=== PATIENT | male | born 1950 | race Caucasian/White ===

== ENCOUNTER → 2023-05-08 | Day surgery (SDC) | payer MEDICARE, MEDICAID ==
[2023-05-03 11:41] LABS: Hemoglobin 16.8 g/dL (13.5-17.5); Red Blood Cells 4.74 10^6/uL (4.5-5.90)
[2023-05-03 11:43] LABS: Hematocrit 49.5 % (41.0-53.0); Mean Corpuscular Hemoglobin 35.4 pg (28.0-32.0); Mean Corpuscular Hgb Conc. 33.9 g/dL (32.0-36.0); Mean Corpuscular Volume 104.5 fL (80.0-100.0); Red Cell Distribution Width 13.8 % (11.8-14.3); White Blood Cell 5.9 10^3/uL (4.4-10.8)
[2023-05-03 11:46] LABS: Band Neutrophils % (manual) 0; Basophils % (manual) 0 (0.0-2.0); Blast Cells 0; Eosinophils % (manual) 0 (0-7); Metamyelocytes % 0; Myelocytes % 0; Promyelocytes % 0; Reactive Lymphocytes 0
[2023-05-03 11:56] LABS: INR 1.02 (0.9-1.15); Partial Thromboplastin Time 30.6 SEC (24.5-34.5)
[2023-05-03 12:03] LABS: Urine Bacteria NONE SEEN /hpf (None Seen); Urine Blood Negative /uL (Negative); Urine Specific Gravity 1.022 (1.001-1.035); Urine WBC <1 /hpf (0 - 3)
[2023-05-03 12:11] LABS: Albumin 3.4 g/dL (3.4-5.0); Calcium 9.2 mg/dL (8.5-10.1); Potassium 5.2 mmol/L (3.5-5.1)
[2023-05-03 12:14] LABS: BUN/Creatinine Ratio 13.4 (10.0-20.0); Bilirubin, Total 0.5 mg/dL (0.2-1.0); Total Protein 7.5 g/dL (6.4-8.2)
[2023-05-03 12:32] LABS: Lymphocytes % (manual) 42 (10.0-50.0); Monocytes % (manual) 18 (0-12)
[~2023-05-08] VITALS: Ht 177.8 cm; Wt 124.7 kg
[~2023-05-08] MED LIST: ATEN-60 PO; BUPIVACAINE HCL 50 ML ONE; DexAMETHasone SOD PHOS 10MG/1ML VIAL INJ ONE; GLYCOPYRROLATE 0.2 MG/ML 1ML VIAL ONE; KETOROLAC TROMETH 30 MG/ML 1ML VIAL ONE; LIDOCAINE 2% (LOCAL ANESTH.) PF 5ml SDV ONE; ONDANSETRON HCL 4 MG/2 ML VIAL ONE; PROPOFOL 10 MG/ML 20 ML IV ONE; ceFAZolin 1GM VL ONE; ceFAZolin 1GM/50ML 100 ML IV ONE
[2023-05-08 08:00] VITALS: RESP 15; TEMP 97.6; O2SAT 95
[2023-05-08 08:30] VITALS: BP 131/65; PULSE 59; RESP 15; O2SAT 96
== END | disposition home or self-care (01) ==
LOC: SUR 06:21
PROVIDERS: ATTEND Orthopaedic Surgery Sports Medicine
DX: M65.342 Trigger finger, left ring finger (principal); I10 Essential (primary) hypertension; Z98.890 Other specified postprocedural states; Z79.899 Other long term (current) drug therapy
CPT/HCPCS: 26055; 36415; 80053; 81001; 85007; 85027; 85610; 85730; J0690; J1100; J1885; J2001; J2405; J2704; J3490